=== PATIENT | male | born 1990 | race African-American/Black ===

== ENCOUNTER 2016-08-01 07:16 | Emergency (ER) | payer OTHER ==
[~2016-08-01] VITALS: Ht 182.9 cm; Wt 70.0 kg
[2016-08-01 07:19] VITALS: BP 114/67; PULSE 67; RESP 16; O2SAT 99
--- NOTE | 2016-08-01 08:05 | ED.REPORT ---
HPI-Abd Pain M Under 42 Date of Service August 01, 2016 ED Provider: Sukh Stapleton MD A healthy 26 year old male presents to the ED with low abdominal pain onset yesterday after urinating, worsening this morning. Associated symptoms include testicular swelling and pain. The patient denies penile discharge, hematuria, or other symptoms. He also denies new sexual contacts. The patient performs heavy lifting every day at work. He took Ibuprofen 600mg just prior to arrival. Nursing Notes Stated Complaint: ABDOMINAL PAIN Chief Complaint: Male Abdominal Pain Nursing Notes Reviewed: Yes Allergies: Coded Allergies: No Known Allergies (Unverified , 08/01/16) Scheduled Levofloxacin (Levaquin) 750 Mg Tablet 750 MG PO ONCE Scheduled PRN Ibuprofen (Ibuprofen) 800 Mg Tablet 800 MG PO TID PRN PRN For Pain General Time Seen by MD: 08:01 Chief Complaint Abdominal pain Hx Obtained From: Patient Arrived By: Walk-in Sudden in Onset?: Yes Onset Occurred: Yesterday Symptom Duration: Since onset Progression since Onset: Gradually worsening Location: : Abdomen lower Quality: Painful Severity: Current: Moderate Severity: Maximum: Moderate Pertinent Negative: Relieved by nothing Recent Healthcare: No recent doctor visit Past Medical History Past Medical History None reported Past Surgical History None reported Smoking History Unknown if Ever Smoker Social History Other Social History: Good social support Occupation Works at [employer] Ambulatory Status Independent Review of Systems Constitutional: Denies: Fever Respiratory: Denies: Non-productive cough, Shortness of breath GI: Reports: Abdominal pain (Lower), Denies: Diarrhea, Vomiting Male: Reports Testicular pain, Reports Testicular swelling, Denies Hematuria , Denies Penile discharge Complete sys rev & neg: except as marked. Physical Exam Initial Vital Signs Vital Signs (First) Date Time Temp Pulse Resp B/P Pulse Ox O2 Delivery O2 Flow Rate FiO2 08/01/16 07:19 37.7 67 16 114/67 99 Room Air Initial VS: Reviewed Head / Eyes: Atraumatic, Normocephalic ENT: Conjunctiva normal, No scleral icterus Neck: Supple, Full range of motion Skin: Warm, Dry, No cyanosis Neurologic: Alert, Oriented, Nonfocal Psychiatric: Mood/affect normal, Behavior normal, Normal thought content General/Constitutional: Awake, Alert Respiratory / Chest: Atraumatic, No respiratory distress Abdomen: Soft, Non-tender Male Genitourinary: Atraumatic, Penis NL, Cremasteric reflex NL, No hernia Testes / Epidid / Scrotum: Positive: Epididymis tender L, Testis tender L Interpretation & Diagnostics US TESTICULAR SONOGRAM WITH DOPPLER: IMPRESSION: 1. Normal appearance of the testicles bilaterally. 2. Abnormal appearance of the left epididymis which is focally enlarged, heterogeneous and hypervascular consistent with epididymitis. 3. Trace left hydrocele. 4. Reducible, fat-containing left inguinal hernia present. Dictated by: Jon HAYES Interpreted: Giuliana Luong MD on 08/01/2016 at 9:18 URINE DIPSTICK: Bedside Urine Specific Dawson * 1.005 Bedside Urine pH * 8 Bedside Urine Leukocyte Esterase * ++ Bedside Urine Nitrite * Negative Bedside Urine Protein * Trace Bedside Urine Glucose * Normal Bedside Urine Ketones * Negative Bedside Urine Urobilinogen * Normal Bedside Urine Bilirubin * Negative Bedside Urine Occult Blood * ~50 Álvaro/ml Urine to Lab * Yes Lab Results Interpretation Result Diagram: 08/01/16 0739 08/01/16 0739 Test 08/01/16 07:35 08/01/16 07:39 08/01/16 09:13 Hold Purple Top Tube Received (Received) Hold Blue Top Tube Received (Received) Hold Red Top Tube Received (Received) Hold [place] Top Tube Received (Received) White Blood Count 12.9th/mm3 (3.8-10.1) Red Blood Count 5.09mil/mm3 (4.40-5.80) Hemoglobin 14.0g/dL (13.8-17.2) Hematocrit 41.1% (41.0-50.0) Mean Corpuscular Volume 80.7fL (81-100) Mean Corpuscular Hemoglobin 27.5pg (27.0-35.0) Mean Corpuscular Hemoglobin Concent 34.1% (32.0-37.0) Red Cell Distribution Width 12.7% (12.3-15.4) Platelet Count 416bil/L (150-400) Neutrophils (%) (Auto) 76.9% (40-74) Lymphocytes (%) (Auto) 12.2% (14-46) Monocytes (%) (Auto) 7.6% (4-12) Eosinophils (%) (Auto) 2.8% (0-5) Basophils (%) (Auto) 0.2% (0-3) Sodium Level 137mEq/L (134-144) Potassium Level 4.1mEq/L (3.5-5.2) Chloride Level 100mEq/L (97-108) Carbon Dioxide Level 26mmol/L (18-29) Blood Urea Nitrogen 8mg/dL (6-20) Creatinine 0.96mg/dL (0.76-1.27) Estimat Glomerular Filtration Rate 102mL/min (>59) Glucose Level 116mg/dL (60-99) Calcium Level 9.5mg/dL (8.5-10.1) Magnesium Level 2.1mg/dL (1.6-2.6) Total Bilirubin 0.3mg/dL (0.0-1.2) Aspartate Amino Transf (AST/SGOT) 23U/L (0-50) Alanine Aminotransferase (ALT/SGPT) 16U/L (0-44) Alkaline Phosphatase 77U/L (25-150) Total Protein 7.8g/dL (6.4-8.4) Albumin 4.3g/dL (3.4-5.0) Lipase 26U/L (13-60) Re-Eval/Medical Decision Med Decision/Clinical Course 26-year-old male with left testicular pain 1 day. He is tender over the left epididymis. He is also tender in the left inguinal canal. Ultrasound shows no testicular torsion but does show a left epididymitis as well as a reducible direct inguinal hernia small left. Patient adamantly denies no new sexual contacts. However it covered for possible STD source with Rocephin and azithromycin. I then prescribed Levaquin and NSAIDs. I sent GC chlamydia urine and we will contact him if the results are positive so his girlfriend can be treated. Regarding his hernia, recommended no heavy lifting or than 10 pounds and follow-up with primary doctor for possible surgery call consult. Return precautions given. Re-Evaluation/Progress : Time of Eval: 09:31 Patient Status: Condition improved Re-Evaluation/Progress Note: Discussed with patient lab and US results, diagnosis, and plan for discharge. Follow-up and return to the ER instructions given. Patient agrees with plan for care and all questions were addressed. Counseled Regarding: Diagnosis, Lab results, Need for follow-up, When/why to return to ED Patient Discharge & Departure Primary Impression: Epididymitis Additional Impression: Left inguinal hernia Disposition: Home Discharge Condition All VS Reviewed: Yes Condition: Improved Patient Instructions: Epididymitis (ED), Inguinal Hernia (ED) Additional Instructions: Thank you for entrusting us with your care. Your ultrasound indicates inflammation of the epididymis as well as a left inguinal hernia. We have sent your urine for a urine culture. This will result in 2-3 days. Take the Levaquin and Ibuprofen as prescribed. Avoid heavy lifting greater than 10 pounds. Call the referred clinic today for a follow-up appointment on Thursday. Discuss the hernia in follow-up as this may need surgery. Return to the ER with any new or worsening symptoms. Referrals: [facility] Attestation Portions of this note were transcribed by Yazmin Kim. I, Dr. Stapleton, personally performed the history, physical exam, and medical decision-making; I reviewed and confirmed the accuracy of the information in the transcribed note. Signed by: Coleen Dias, 08/01/2016, 12:10 copies to: [facility] Sukh Stapleton MD August 01, 2016 08:05 YAZMIN KIM August 01, 2016 08:12
[2016-08-01] MEDS ORDERED: Ondansetron 2 mg/mL 2 mL Inj IVPUSH PRN (08:10)
[2016-08-01 08:19] LABS: BASOPHILS % (AUTO) 0.2 % (0-3); EOSINOPHILS % (AUTO) 2.8 % (0-5); MONOCYTES % (AUTO) 7.6 % (4-12); Mean Corpuscular Hemoglobin 27.5 pg (27.0-35.0); Mean Corpuscular Volume 80.7 fL (81-100); NEUTROPHILS % (AUTO) 76.9 % (40-74); Platelet Count 416 bil/L (150-400)
[2016-08-01 08:28] LABS: Magnesium 2.1 mg/dL (1.6-2.6)
--- NOTE | 2016-08-01 09:21 | DRSVH ---
PROCEDURE: US TESTICULAR SONOGRAM WITH DOPPLER INDICATIONS: L testicle pain TECHNIQUE: Real-time scanning was performed of the scrotum and testicles, with image documentation. Color and p ulse Doppler interrogation was performed of both testicles. COMPARISON: None. FINDINGS: Right: Testicle is normal in size at 4.3 x 1.7 x 2.6 cm, and homogenous in echotexture. Epididymis is normal in overall size and morphology. No hydrocele or varicoceles. Overlying scrotal skin is no rmal in thickness. Left: Testicle is normal in size at 4.0 x 2.0 x 2.8 cm, and homogeneous in echotexture. Epididymis focally thickened, heterogeneous and mildly vascular within the tail measuring 1.4 x 1.1 x 1.3 cm. T race hydrocele. Overlying scrotal skin is normal in thickness. Reducible, fat-containing left ingui nal hernia present. Doppler: Color and pulse Doppler demonstrate normal and symmetric arterial flow in both testicles. IMPRESSION: 1. Normal appearance of the testicles bilaterally. 2. Abnormal appearance of the left epididymis which is focally enlarged, heterogeneous and hypervascu lar consistent with epididymitis. 3. Trace left hydrocele. 4. Reducible, fat-containing left inguinal hernia present. Dictated by: Jon PITTA Interpreted: Giuliana Lunog MD on 08/01/2016 at 9:18 Transcribed by: ALBERTINA on 08/01/2016 at 9:21 Approved by: Giuliana Luong MD, PhD on 08/01/2016 at 15:10
[2016-08-01] MEDS ORDERED: LEVO750T9 PO (09:38)
[2016-08-01] MEDS ORDERED: IBUP800T28 PO (09:38)
[2016-08-01] MEDS ORDERED: cefTRIAXone Inj 250 MG, Lidocaine PF 1% Inj 0.9 ML in Syringe 1 EACH IM ONE ×2 (09:40→10:08)
[2016-08-01] MEDS ORDERED: cefTRIAXone Inj 250 MG, Lidocaine PF 1% Inj 0.9 ML in Syringe 1 EACH IV SCH (09:50)
[2016-08-01] MEDS ORDERED: cefTRIAXone Inj 250 MG, Lidocaine PF 1% Inj 0.9 ML in Syringe 1 EACH IM SCH ×2 (09:56→10:05)
[2016-08-01 10:51] VITALS: BP 118/56; PULSE 70; RESP 12; O2SAT 100
== END 2016-08-01 10:52 | disposition home or self-care (01) ==
LOC: SED 07:16
DX: N45.1 Epididymitis (principal); K40.90 Unilateral inguinal hernia, without obstruction or gangrene, not specified as recurrent
CPT/HCPCS: 76870; 80053; 83690; 83735; 85025; 87491; 87591; 93975; 96372; 99285; J0696